=== PATIENT | female | born 1980 | race Asian ===

== ENCOUNTER 2025-02-20 19:46 | Emergency (ER) | payer OTHER ==
[~2025-02-20] VITALS: Ht 160 cm; Wt 71.9 kg
[2025-02-20 20:08] VITALS: TEMP 98.3
[2025-02-20 20:13] LABS: HEMATOCRIT 42.3 % (36.0-47.0); HEMOGLOBIN 14.9 g/dl (12.0-15.5); MEAN CORPUSCULAR HEMOGLOBIN 30.8 pg (27.0-33.0); MEAN CORPUSCULAR HGB CONC 35.2 g/dl (32.0-36.5); MEAN CORPUSCULAR VOLUME 87.4 fl (80.0-96.0); PLATELET COUNT, AUTOMATED 270 10^3/uL (150-450); RED BLOOD COUNT 4.84 10^6/uL (4.00-5.40); WHITE BLOOD COUNT 7.9 10^3/uL (4.0-10.0)
[2025-02-20 20:34] LABS: CK-MB VALUE MASS < 1.0 NG/ML (<3.6)
[2025-02-20 20:36] LABS: BLOOD UREA NITROGEN 24 MG/DL (9-23); CALCIUM LEVEL 8.9 MG/DL (8.5-10.1); CARBON DIOXIDE LEVEL 27 MMOL/L (20-31); CHLORIDE LEVEL 107 MMOL/L (98-107); CREATININE FOR GFR 0.72 MG/DL (0.55-1.30); GLOMERULAR FILTRATION RATE > 90.0 (>58); GLUCOSE, FASTING 168 MG/DL (60-100); POTASSIUM SERUM 3.5 MMOL/L (3.5-5.1); SODIUM LEVEL 142 MMOL/L (136-145)
[2025-02-20 20:38] LABS: CPK CREATINE PHOSPHOKINASE 69 U/L (34-145); MB/CK RELATIVE INDEX 1.44 (< OR =4)
[2025-02-21] MEDS: LABETALOL 100MG/20ML VIAL IV STA (01:28)
[2025-02-21 01:41] LABS: CK-MB VALUE MASS < 1.0 NG/ML (<3.6); CPK CREATINE PHOSPHOKINASE 105 U/L (34-145); MB/CK RELATIVE INDEX 0.95 (< OR =4)
[2025-02-21] MEDS ORDERED: ISOVUE-370 76% 100ML VIAL As Ordered ONE (01:45)
[2025-02-21] MEDS: ASPIRIN 81MG CHEW TABLET PO ONE (02:06)
[2025-02-21 02:50] VITALS: BP 158/106
[2025-02-21] MEDS: NIFEdipine 30MG XL TAB PO ONE (02:50)
[2025-02-21 04:30] VITALS: BP 164/105; O2SAT 97
[2025-02-21 08:37] LABS: THYROXINE (T4) 8.8 UG/DL (4.5-10.9)
[2025-02-21 08:38] LABS: THYROID STIMULATING HORMONE 1.227 uIU/ML (0.55-4.78)
[2025-02-21 09:14] LABS: ALBUMIN 4.2 G/DL (3.2-5.2); ALKALINE PHOSPHATASE 60 U/L (35-104); ALT/SGPT 74 U/L (7.0-40); AST/SGOT 109 U/L (<34); BILIRUBIN,DIRECT 0.2 MG/DL (<0.4); FREE THYROXINE INDEX 3.1 % (1.3-4.8); T UPTAKE 35.6 % (22.5-37.0); TOTAL PROTEIN 7.8 G/DL (5.7-8.2)
== END 2025-02-21 04:49 | disposition left against medical advice (07) ==
LOC: M ED 19:46
DX: I16.1 Hypertensive emergency (principal); I10 Essential (primary) hypertension; K76.0 Fatty (change of) liver, not elsewhere classified; E03.9 Hypothyroidism, unspecified; Z87.19 Personal history of other diseases of the digestive system; Z53.9 Procedure and treatment not carried out, unspecified reason
CPT/HCPCS: 71046; 71275; 80048; 80076; 82550; 82553; 83880; 84436; 84443; 84479; 84484; 84550; 85027; 93005; 93971; 96374; 99284; J1920; Q9967

== ENCOUNTER 2025-10-05 00:08 | Emergency (ER) | payer OTHER ==
[~2025-10-05] VITALS: Ht 160 cm; Wt 77.5 kg
[2025-10-05 01:44] LABS: HCG, SERUM QUALITATIVE NEGATIVE (NEGATIVE)
[2025-10-05 02:56] VITALS: BP 160/90; TEMP 98.3; O2SAT 100
== END 2025-10-05 02:58 | disposition home or self-care (01) ==
LOC: M ED 00:08 → EDBD 00:08 → M ED 02:58
DX: S63.502A Unspecified sprain of left wrist, initial encounter (principal); S70.02XA Contusion of left hip, initial encounter; S29.011A Strain of muscle and tendon of front wall of thorax, initial encounter; W00.0XXA Fall on same level due to ice and snow, initial encounter; I10 Essential (primary) hypertension; M51.34 Other intervertebral disc degeneration, thoracic region; J45.909 Unspecified asthma, uncomplicated; E28.2 Polycystic ovarian syndrome; E03.9 Hypothyroidism, unspecified; Y92.009 Unspecified place in unspecified non-institutional (private) residence as the place of occurrence of the external cause; Y93.89 Activity, other specified; Y99.9 Unspecified external cause status

== ENCOUNTER 2025-10-16 01:36 | Emergency (ER) | payer OTHER ==
[~2025-10-16] VITALS: Ht 160 cm; Wt 75.3 kg
[2025-10-16 03:37] VITALS: TEMP 98; O2SAT 98
[2025-10-16 03:38] VITALS: BP 180/76
== END 2025-10-16 04:40 | disposition left against medical advice (07) ==
LOC: M ED 01:36
DX: Z53.21 Procedure and treatment not carried out due to patient leaving prior to being seen by health care provider (principal)